=== PATIENT | male | born 1955 | race Caucasian/White ===

== ENCOUNTER 2018-06-10 13:29 | Observation (INO) | payer OTHER ==
[~2018-06-10] VITALS: Ht 180.3 cm; Wt 132.0 kg
[~2018-06-10 13:29] MED LIST: ALPRAZOLAM0.5 MG PO; AXIRON90 ML TD; AZOR 5/20 MG1 TABLET PO; DEPRESSION MED; FETZIMA40 MG PO; FLUOXETINE HCL20 MG PO; FLUOXETINE HCL40 MG PO; LEXAPRO10 MG PO; LOSARTAN POTASS50 MG PO; QUETIAPINE FUMA50 MG PO; SEROQUEL100 MG PO; SEROQUEL200 MG PO; XANAX0.5 MG PO
[2018-06-10 14:38] LABS: HEMATOCRIT 41.5 % (38.0-50.0); HEMOGLOBIN 14.7 G/DL (12.5-16.6); MCH 31.3 PG (29.0-34.0); MCHC 35.4 G/DL (30.0-36.0); MCV 88.5 FL (86-99); PLATELET COUNT 152 K/uL (156-360); RBC DIS.WIDTH-CV 13.5 % (11.8-14.6); RBC DIS.WIDTH-SD 43.9 % (39-53); RED BLOOD COUNT 4.69 M/uL (4.00-5.50); WHITE BLOOD COUNT 6.3 K/uL (4.1-10.2)
[2018-06-10 14:46] LABS: ALBUMIN 3.7 g/dL (3.2-4.8); CHLORIDE 106 mEq/L (99-109); POTASSIUM 4.2 mEq/L (3.7-5.4); SODIUM 137 mEq/L (136-147)
[2018-06-10 14:49] LABS: GLUCOSE 104 mg/dL (70-99); TOTAL PROTEIN 6.9 g/dL (6.4-8.3)
[2018-06-10 14:50] LABS: TOTAL BILIRUBIN 0.5 mg/dL (0.0-1.0)
[2018-06-10 14:52] LABS: ALKALINE PHOSPHATASE 64 IU/L (3-129); CREATININE 0.9 mg/dL (0.6-1.3); GFR ESTIMATE (CALCULATED) > 59 mL/min/ (58.99-99999)
[2018-06-10 14:53] LABS: UREA NITROGEN (BUN) 18 mg/dL (9-23)
[2018-06-10 14:54] LABS: AST (GOT) 33 IU/L (2-34)
[2018-06-10 14:55] LABS: ALT (GPT) 38 IU/L (3-49)
[2018-06-10 14:56] LABS: LIPASE 73 U/L (1.0-51.0)
[2018-06-10 15:01] LABS: TROP-I INTERPRETATION NEGATIVE; TROPONIN-I < 0.01 ng/mL (0.0-0.30)
[2018-06-10] MEDS ORDERED: AMLODIPINE BESYL5 MG PO (15:35)
[2018-06-10] MEDS ORDERED: KLOR-CON 1010 ME1 PO (15:36)
[2018-06-10] MEDS ORDERED: LOSARTAN POTAS100 MG PO (15:36)
[2018-06-10] MEDS ORDERED: BRINTELLIX10 MG PO (15:40)
[2018-06-10 17:19] VITALS: BP 130/77
[2018-06-10 17:21] LABS: HDL CHOLESTEROL 36 MG/DL (Desirable>=40); LDL CHOLESTEROL 88 mg/dL (Desirable<100); NON-HDL CHOLESTEROL 117 mg/dL (Desirable<160); TOTAL CHOLESTEROL 153 mg/dL (Desirable<200); TRIGLYCERIDES 144 MG/DL (Normal: <150)
[2018-06-10 19:00] VITALS: BP 117/75
[2018-06-10 21:20] LABS: TROP-I INTERPRETATION NEGATIVE; TROPONIN-I 0.01 ng/mL (0.0-0.30)
[2018-06-10 23:19] VITALS: BP 112/57
[2018-06-11 02:56] LABS: TROP-I INTERPRETATION NEGATIVE; TROPONIN-I < 0.01 ng/mL (0.0-0.30)
[2018-06-11 03:51] VITALS: BP 115/64
[2018-06-11 04:47] LABS: HEMATOCRIT 41.5 % (38.0-50.0); HEMOGLOBIN 14.5 G/DL (12.5-16.6); MCH 31.5 PG (29.0-34.0); MCHC 34.9 G/DL (30.0-36.0); MCV 90.2 FL (86-99); PLATELET COUNT 123 K/uL (156-360); RBC DIS.WIDTH-CV 13.6 % (11.8-14.6); RBC DIS.WIDTH-SD 45.1 % (39-53); WHITE BLOOD COUNT 4.8 K/uL (4.1-10.2)
[2018-06-11 05:43] LABS: CHLORIDE 105 mEq/L (99-109); POTASSIUM 4.1 mEq/L (3.7-5.4); SODIUM 138 mEq/L (136-147)
[2018-06-11 05:45] LABS: GLUCOSE 99 mg/dL (70-99)
[2018-06-11 05:49] LABS: GFR ESTIMATE (CALCULATED) > 59 mL/min/ (58.99-99999); UREA NITROGEN (BUN) 16 mg/dL (9-23)
[2018-06-11 07:18] VITALS: BP 109/57
[2018-06-11 11:26] VITALS: BP 123/76
[2018-06-11 15:36] VITALS: BP 143/64
[2018-06-11] MEDS ORDERED: NAPROSYN500 MG PO (15:36)
== END 2018-06-11 16:31 | disposition home or self-care (01) ==
LOC: EME 13:29 → 4SOUTH 15:54 → EDOF 15:54 → ENRESERV 15:57 → 4SOUTH 16:51
PROVIDERS: Family Medicine; Internal Medicine; Physician Assistant
DX: M94.0 Chondrocostal junction syndrome [Tietze] (principal); I10 Essential (primary) hypertension; E66.9 Obesity, unspecified; Z68.41 Body mass index [BMI] 40.0-44.9, adult; F32.9 Major depressive disorder, single episode, unspecified; Z85.47 Personal history of malignant neoplasm of testis; Z90.49 Acquired absence of other specified parts of digestive tract; Z82.49 Family history of ischemic heart disease and other diseases of the circulatory system; R51 Headache
CPT/HCPCS: 71046; 80048; 80053; 80061; 82948; 83690; 84484; 85027; 93005; 99281; 99285; G0378

== ENCOUNTER 2018-07-03 12:47 | Day surgery (SDC) | payer OTHER ==
[~2018-07-03] VITALS: Ht 180.3 cm; Wt 136.0 kg
[~2018-07-03 12:47] MED LIST changes: +AMLODIPINE BESYL5 MG PO; +BRINTELLIX10 MG PO; +KLOR-CON 1010 ME1 PO; +LOSARTAN POTAS100 MG PO; +NAPROSYN500 MG PO
== END 2018-07-03 20:15 | disposition home or self-care (01) ==
LOC: CATH 12:47
DX: R07.9 Chest pain, unspecified (principal)
CPT/HCPCS: C1769; C1887; J1644; J2250; J3010; J7040